=== PATIENT | female | born 1935 | race Caucasian/White ===

== ENCOUNTER 2020-01-03 07:49 | Outpatient (CLI) | payer MEDICARE, BC, OTHER ==
[2020-01-03 11:35] LABS: Hemoglobin 11.9 g/dL (12.0-16.0); Mean Corpuscular HGB CONC 32.8 g/dL (32.0-36.0); Mean Corpuscular Hemoglobin 32.4 pg (27.0-31.0); Mean Corpuscular Volume 98.7 fL (78.0-98.0); Platelet Count 141 thou/uL (130-400); RBC Distribution Width 11.8 % (11.5-14.5); Red Blood Cell (RBC) Count 3.67 mill/uL (4.20-5.40); White Blood Cell (WBC) Count 7.3 thou/uL (4.8-10.8)
[2020-01-03 12:26] LABS: ALT (SGPT) 26 U/L (8-55); AST (SGOT) 29 U/L (5-34); Albumin 4.6 g/dL (3.4-4.8); Alkaline Phosphatase 87 U/L (40-110); Anion Gap 14 mmol/L (10-20); BUN (Urea Nitrogen) 18 mg/dL (9.8-20.1); Bilirubin, Total 0.7 mg/dL (0.2-1.2); Calc. Creatinine Clearance 0 mL/min (70-130); Calcium 10.6 mg/dL (7.8-10.44); Carbon Dioxide 27 mmol/L (23-31); Cardiac Risk 2.6 (Less than 4.5); Chloride 105 mmol/L (98-107); Cholesterol 107 mg/dl (< 200 Desired); Estimated GFR-MDRD 39; Globulin 2.5 g/dL (2.4-3.5); Glucose 93 mg/dL (83-110); HDL Cholesterol 41 mg/dL (>60 Neg Risk); LDL Cholesterol, Calculated 44 mg/dL; Potassium 4.8 mmol/L (3.5-5.1); Protein, Total 7.1 g/dL (6.0-8.3); Sodium 141 mmol/L (136-145); Triglycerides 108 mg/dL (Less than 150)
--- NOTE | 2020-01-03 16:47 | EKG ---
Test Reason : PREOP Blood Pressure : / mmHG Vent. Rate : 067 BPM Atrial Rate : 067 BPM P-R Int : 162 ms QRS Dur : 096 ms QT Int : 418 ms P-R-T Axes : 079 054 070 degrees QTc Int : 441 ms Normal sinus rhythm Nonspecific ST abnormality Abnormal ECG No previous ECGs available Confirmed by DR. Mara SANTA ([id number]) on 01/03/2020 4:46:41 PM Referred By: Kunal CHAKRABORTY Confirmed By:DR. Mara ASNTA
[2020-01-03 17:06] LABS: SARS-CoV-2 MS2 Positive; SARS-CoV-2 N Gene Negative; SARS-CoV-2 S Gene Negative; SARS-CoV-2 by NAA Not Detected (NotDetected); SARS-CoV-2 orf1ab Negative
== END 2020-01-03 07:50 | disposition home or self-care (01) ==
LOC: LABBT 07:49
PROVIDERS: ATTEND Internal Medicine Cardiovascular Disease
DX: Z01.818 Encounter for other preprocedural examination (principal); Z20.828 Contact with and (suspected) exposure to other viral communicable diseases; R94.39 Abnormal result of other cardiovascular function study
CPT/HCPCS: 80053; 80061; 85027; 93005; U0003; 87635; 93010

== ENCOUNTER 2020-01-08 05:56 | Day surgery (SDC) | payer MEDICARE, BC ==
[2020-01-03 11:35] VITALS: BMI 27.1
[2020-01-08] MEDS ORDERED: Heparin 10,000 UNITS/ 10 ML VIAL ONE (06:30)
[2020-01-08] MEDS ORDERED: Midazolam HCl 2 mg/2 ml Vial ONE (07:03)
[2020-01-08] MEDS ORDERED: Bivalirudin 250 MG VIAL ONE (07:41)
[2020-01-08] MEDS ORDERED: Clopidogrel Bisulfate 300 MG TAB ONE (07:54)
[2020-01-08] MEDS ORDERED: hydrALAZINE 20 MG/ML VIAL ONE (08:47)
[2020-01-08] MEDS ORDERED: Nitroglycerin 0.4 MG TAB (25 Tab Bottle) SL PRN (09:04)
[2020-01-08] MEDS ORDERED: Iopamidol 370 76% 100 ML VIAL ONE (09:05)
[2020-01-08] MEDS ORDERED: Iopamidol 370 76% 50 ML VIAL FS ONE (09:05)
[2020-01-08] MEDS ORDERED: Morphine 2 MG/ML VIAL SLOW IVP PRN (09:07)
[2020-01-08] MEDS ORDERED: Morphine 4 MG/ML VIAL SLOW IVP PRN (09:08)
[2020-01-08] MEDS ORDERED: hydrALAZINE 20 MG/ML VIAL SLOW IVP PRN (09:10)
[2020-01-08] MEDS ORDERED: Sodium Chloride 0.9% 1,000 ML IV SCH (09:15)
[2020-01-08] MEDS ORDERED: Clopidogrel Bisulfate 75 MG TAB ONE (17:03)
[2020-01-08] MEDS ORDERED: Acetaminophen 500 MG TAB ONE (18:23)
[2020-01-09] MEDS ORDERED: Clopidogrel Bisulfate 75 MG TAB PO SCH (09:00)
[2020-01-09] MEDS ORDERED: Aspirin Chewable 81 MG TAB PO SCH (09:00)
== END 2020-01-08 19:55 | disposition home or self-care (01) ==
LOC: SDC 05:56
PROVIDERS: ATTEND Internal Medicine Cardiovascular Disease
PROC: 02703DZ Dilation of Coronary Artery, One Artery with Intraluminal Device, Percutaneous Approach (ICD-10-PCS; principal; 2020-01-08)
PROC: 4A023N7 Measurement of Cardiac Sampling and Pressure, Left Heart, Percutaneous Approach (ICD-10-PCS; 2020-01-08)
PROC: B2111ZZ Fluoroscopy of Multiple Coronary Arteries using Low Osmolar Contrast (ICD-10-PCS; 2020-01-08)
PROC: B2181ZZ Fluoroscopy of Left Internal Mammary Bypass Graft using Low Osmolar Contrast (ICD-10-PCS; 2020-01-08)
DX: I25.10 Atherosclerotic heart disease of native coronary artery without angina pectoris (principal); I25.810 Atherosclerosis of coronary artery bypass graft(s) without angina pectoris; I25.82 Chronic total occlusion of coronary artery; E78.5 Hyperlipidemia, unspecified; E78.00 Pure hypercholesterolemia, unspecified; I10 Essential (primary) hypertension; I65.21 Occlusion and stenosis of right carotid artery; Z79.2 Long term (current) use of antibiotics; Z79.82 Long term (current) use of aspirin; Z79.899 Other long term (current) drug therapy; Z88.7 Allergy status to serum and vaccine; Z88.8 Allergy status to other drugs, medicaments and biological substances; Z91.012 Allergy to eggs; Z95.1 Presence of aortocoronary bypass graft; Z95.5 Presence of coronary angioplasty implant and graft
CPT/HCPCS: 85347 ×2; 92928; 93455; C1876; 99152; 99153; J0360; J0583; J1644; J2250; Q9967

== ENCOUNTER 2020-02-19 14:12 | Outpatient (CLI) | payer MEDICARE, BC ==
[~2020-02-19 14:12] MED LIST: Iopamidol 370 76% 100 ML VIAL ONE
--- NOTE | 2020-02-19 16:56 | CT ---
CTA ABDOMEN AND PELVIS FOLLOWING AORTOGRAM PROTOCOL: 02/19/20 Multiplanar reconstruction and 3D postprocessing. INDICATION: Abdominal pain. Assess for mesenteric ischemia. FINDINGS: Abdominal aorta shows atherosclerotic changes. No evidence of dissection. No evidence of aneurysm. Di stal abdominal aorta diameter measured at 1.9 cm. Atherosclerotic calcification at the origin of the celiac artery with mild stenosis at the origin of this artery. The stenosis does not appear to be hemodynamically significant. There is soft plaque with focal stenosis at the origin of the superior mesenteric artery. The degree of stenosis is approaching 50% diameter by NASCET criteria which would indicate hemodynamically signi ficance. The superior mesenteric artery trunk is patent with no other evidence of stenosis or occlusi on. Atherosclerotic plaque at the origin of the right renal artery results in significant renal artery st enosis greater than 50%. Plaque at the origin of the left renal artery also results in hemodynamically significant stenosis. Aortic bifurcation is patent. The common iliac arteries show no significant stenosis. The internal an d external iliac arteries show no significant stenosis as visualized. The visualized lung bases are clear. Liver, spleen and pancreas unremarkable. Adrenal glands and kidn eys unremarkable. There is a left renal cyst measuring approximately 1.4 cm. The visualized bowel loo ps unremarkable. Osseous structures unremarkable. Degenerative spine changes. IMPRESSION: 1. 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 2. There is evidence of hemodynamically significant stenosis at the origin of both renal arterie s. Recommend cardiovascular consultation to consider catheter angiogram and treatment with stent placeme nt as indicated. POS: MATHEW
== END 2020-02-19 14:13 | disposition home or self-care (01) ==
LOC: BICCT 14:12
PROVIDERS: ATTEND Internal Medicine
DX: K59.00 Constipation, unspecified (principal); R10.32 Left lower quadrant pain; I77.1 Stricture of artery
CPT/HCPCS: 74175; Q9967

== ENCOUNTER 2020-02-21 13:00 | Outpatient (CLI) | payer MEDICARE, BC ==
--- NOTE | 2020-02-21 14:18 | CT ---
CT abdomen and pelvis with IV and oral contrast HISTORY: Lower abdomen pain. Vascular disease. COMPARISON: 02/19/2020. FINDINGS: Very mild proximal scarring at the lung bases. Prominent calcification is again demonstrate d throughout the arterial structures. Small cortical cysts and dystrophic cortical calcifications associated with each kidney are stable. Liver, spleen, adrenal glands, and pancreas have a normal appearance. There are prominent degenerativ e changes throughout the lumbar spine. Diverticula arise from the colon. There are primarily 2 areas of circumferential colon wall thickenin g and subtle stranding in the adjacent fat. On the right, it extends from the level of the lower right colon to the proximal transverse colon. On the left, it involves the lower left colon and the e ntirety of the sigmoid colon, into the upper rectum. No evidence of bowel obstruction. No free air or free fluid. IMPRESSION : Noncontiguous long segment mild inflammatory changes of the colon, involving the right colon and sigm oid colon primarily. Appearance is not typical for diverticulitis (although there is diverticulosis) or a good distribution for ischemia. Inflammatory bowel disease may be unlikely given the rapid appearance. Consider infectious etiology. Atherosclerosis.
== END 2020-02-21 13:01 | disposition home or self-care (01) ==
LOC: BICCT 13:00
PROVIDERS: ATTEND Internal Medicine
DX: K59.00 Constipation, unspecified (principal); R10.32 Left lower quadrant pain; I70.90 Unspecified atherosclerosis
CPT/HCPCS: 74177

== ENCOUNTER 2020-08-05 13:51 | Outpatient (CLI) | payer MEDICARE, BC | END 2020-08-05 13:52 | disposition home or self-care (01) | LOC: BICULT 13:51 | PROVIDERS: ATTEND Family Medicine | DX: N39.0 Urinary tract infection, site not specified (principal) | CPT/HCPCS: 76770 ==

== ENCOUNTER 2020-10-11 13:53 | Inpatient (IN) | payer MEDICARE, BC ==
[2020-10-11] MEDS ORDERED: Acetaminophen 325 MG TAB PO PRN (14:44)
[2020-10-11] MEDS ORDERED: Ondansetron PF 4 MG/2 ML Vial IVP PRN (14:44)
[2020-10-11] MEDS ORDERED: Morphine 2 MG/ML VIAL SLOW IVP PRN (14:44)
[2020-10-11] MEDS ORDERED: Guaifenesin DM 100-10/5 ML UDCUP PO PRN (14:44)
[2020-10-11] MEDS ORDERED: Senokot S 8.6-50 MG TAB PO PRN (14:44)
[2020-10-11] MEDS ORDERED: Nitroglycerin 2% Ointment 1 INCH/1 GM Packet ONE (16:12)
[2020-10-11 16:24] LABS: Troponin I 7.245 ng/mL (< 0.028)
[2020-10-11 16:25] LABS: #Basophils 0.1 thou/uL (0.0-0.2); #Lymphocytes 1.6 thou/uL (1.20-3.40); #Monocytes 0.8 thou/uL (0.11-0.59); #Neutrophils 9.3 thou/uL (1.40-6.50); %Basophils 0.5 % (0.0-1.0); %Eosinophils 0.1 % (0.0-10.0); %Lymphocytes 13.9 % (21.0-51.0); %Monocytes 6.6 % (0.0-10.0); Hemoglobin 12.8 g/dL (12.0-16.0); Mean Corpuscular HGB CONC 33.3 g/dL (32.0-36.0); Mean Corpuscular Hemoglobin 32.3 pg (27.0-31.0); Mean Corpuscular Volume 97.1 fL (78.0-98.0); Mean Platelet Volume 9.2 fL (7.4-10.4); Platelet Count 157 thou/uL (130-400); RBC Distribution Width 11.5 % (11.5-14.5); Red Blood Cell (RBC) Count 3.95 mill/uL (4.20-5.40); White Blood Cell (WBC) Count 11.8 thou/uL (4.8-10.8)
[2020-10-11 16:36] LABS: INR-International Normal Ratio 1.1
[2020-10-11 16:37] LABS: PTT 42.4 sec (22.9-36.1)
[2020-10-11 16:53] LABS: Anion Gap 20 mmol/L (10-20); BUN (Urea Nitrogen) 33 mg/dL (9.8-20.1); CK (CPK) 389 U/L (29-168); Calc. Creatinine Clearance 33 mL/min (70-130); Calcium 9.6 mg/dL (7.8-10.44); Carbon Dioxide 18 mmol/L (23-31); Chloride 106 mmol/L (98-107); Glucose 101 mg/dL (83-110); Potassium 4.5 mmol/L (3.5-5.1); Sodium 139 mmol/L (136-145)
[2020-10-11] MEDS: Cefepime 1 GM in Sodium Chloride 0.9% 100 ML IVPB SCH (16:59)
[2020-10-11 17:16] LABS: Troponin I 7.404 ng/mL (< 0.028)
[2020-10-11] MEDS: Carvedilol 6.25 MG TAB PO SCH (20:56)
[2020-10-11] MEDS: Enoxaparin Sodium 60 MG/0.6 ML SYRINGE SC SCH (20:56)
[2020-10-11] MEDS ORDERED: Nitroglycerin 2% Ointment 1 INCH/1 GM Packet TOP SCH (22:00)
[2020-10-12 01:44] LABS: SARS-CoV-2 PCR by NAA Not Detected (NotDetected)
[2020-10-12 04:28] LABS: #Monocytes 0.8 thou/uL (0.11-0.59); #Neutrophils 11.2 thou/uL (1.40-6.50); %Lymphocytes 7.9 % (21.0-51.0); %Monocytes 6.4 % (0.0-10.0); %Neutrophils 85.7 % (42.0-75.0); Hemoglobin 12.4 g/dL (12.0-16.0); Mean Corpuscular HGB CONC 33.7 g/dL (32.0-36.0); Mean Corpuscular Hemoglobin 32.4 pg (27.0-31.0); Mean Corpuscular Volume 96.2 fL (78.0-98.0); Mean Platelet Volume 10.3 fL (7.4-10.4); Platelet Count 136 thou/uL (130-400); RBC Distribution Width 11.4 % (11.5-14.5); Red Blood Cell (RBC) Count 3.82 mill/uL (4.20-5.40); White Blood Cell (WBC) Count 13.1 thou/uL (4.8-10.8)
[2020-10-12] MEDS: Cefepime 1 GM in Sodium Chloride 0.9% 100 ML IVPB SCH ×2 (04:34→17:03)
[2020-10-12 04:36] LABS: Hemoglobin A1c 4.7 % (4.0-6.0)
[2020-10-12 04:54] LABS: ALT (SGPT) 20 U/L (8-55); AST (SGOT) 87 U/L (5-34); Albumin 4.1 g/dL (3.4-4.8); Alkaline Phosphatase 77 U/L (40-110); Anion Gap 18 mmol/L (10-20); BUN (Urea Nitrogen) 31 mg/dL (9.8-20.1); Bilirubin, Total 0.8 mg/dL (0.2-1.2); Calc. Creatinine Clearance 31 mL/min (70-130); Calcium 9.8 mg/dL (7.8-10.44); Carbon Dioxide 20 mmol/L (23-31); Cardiac Risk 2.3 (Less than 4.5); Chloride 105 mmol/L (98-107); Cholesterol 93 mg/dl (< 200 Desired); Globulin 2.9 g/dL (2.4-3.5); Glucose 135 mg/dL (83-110); HDL Cholesterol 40 mg/dL (>60 Neg Risk); LDL Cholesterol, Calculated 38 mg/dL; Potassium 4.4 mmol/L (3.5-5.1); Sodium 139 mmol/L (136-145); Triglycerides 74 mg/dL (Less than 150)
[2020-10-12 08:20] LABS: Troponin I 15.826 ng/mL (< 0.028)
[2020-10-12] MEDS ORDERED: Clopidogrel Bisulfate 75 MG TAB PO SCH (09:00)
[2020-10-12] MEDS: Aspirin Chewable 81 MG TAB PO SCH (09:01)
[2020-10-12] MEDS: Nortriptyline HCl 25 MG CAP PO SCH (09:01)
[2020-10-12] MEDS: Clopidogrel Bisulfate 75 MG TAB PO SCH (09:01)
[2020-10-12] MEDS: Rosuvastatin 10 MG TAB PO SCH (09:01)
[2020-10-12] MEDS: Carvedilol 6.25 MG TAB PO SCH ×2 (09:03→20:45)
[2020-10-12] MEDS: Enoxaparin Sodium 60 MG/0.6 ML SYRINGE SC SCH ×2 (11:27→20:46)
[2020-10-12] MEDS ORDERED: Evolocumab [Repatha Sureclick] 140 MG/ML Pen.Injctr SC SCH (13:30)
[2020-10-12] MEDS ORDERED: Furosemide 20 MG/2 ML VIAL SLOW IVP SCH (14:00)
[2020-10-12 14:56] LABS: Critical Call Chem Troponin I RESULT DECREASING
[2020-10-12 15:32] LABS: CKMB 39.4 ng/mL (0-6.6); Critical Call CKMB RESULT DECREASING
[2020-10-12] MEDS ORDERED: Furosemide 40 MG/4 ML VIAL SLOW IVP SCH (16:30)
[2020-10-13] MEDS: Cefepime 1 GM in Sodium Chloride 0.9% 100 ML IVPB SCH ×2 (03:29→15:16)
[2020-10-13 05:04] LABS: #Lymphocytes 1.4 thou/uL (1.20-3.40); #Monocytes 1.4 thou/uL (0.11-0.59); #Neutrophils 9.8 thou/uL (1.40-6.50); %Eosinophils 0.3 % (0.0-10.0); %Lymphocytes 10.9 % (21.0-51.0); %Monocytes 11.3 % (0.0-10.0); %Neutrophils 77.5 % (42.0-75.0); Hemoglobin 10.8 g/dL (12.0-16.0); Mean Corpuscular HGB CONC 33.4 g/dL (32.0-36.0); Mean Corpuscular Hemoglobin 32.5 pg (27.0-31.0); Mean Corpuscular Volume 97.5 fL (78.0-98.0); Platelet Count 95 thou/uL (130-400); RBC Distribution Width 11.6 % (11.5-14.5); Red Blood Cell (RBC) Count 3.32 mill/uL (4.20-5.40); White Blood Cell (WBC) Count 12.7 thou/uL (4.8-10.8)
[2020-10-13 05:16] LABS: Anion Gap 15 mmol/L (10-20); BUN (Urea Nitrogen) 33 mg/dL (9.8-20.1); Calc. Creatinine Clearance 30 mL/min (70-130); Calcium 9.4 mg/dL (7.8-10.44); Carbon Dioxide 22 mmol/L (23-31); Chloride 104 mmol/L (98-107); Glucose 123 mg/dL (83-110); Potassium 4.3 mmol/L (3.5-5.1); Sodium 137 mmol/L (136-145)
[2020-10-13 05:28] LABS: Troponin I 16.187 ng/mL (< 0.028)
[2020-10-13] MEDS: Furosemide 40 MG/4 ML VIAL SLOW IVP SCH ×2 (05:29→15:17)
[2020-10-13] MEDS: Carvedilol 6.25 MG TAB PO SCH ×2 (08:18→21:14)
[2020-10-13] MEDS: Rosuvastatin 10 MG TAB PO SCH (08:18)
[2020-10-13] MEDS: Aspirin Chewable 81 MG TAB PO SCH (08:18)
[2020-10-13] MEDS: Nortriptyline HCl 25 MG CAP PO SCH (08:19)
[2020-10-13] MEDS: Enoxaparin Sodium 60 MG/0.6 ML SYRINGE SC SCH (08:19)
[2020-10-13] MEDS: Clopidogrel Bisulfate 75 MG TAB PO SCH (12:10)
[2020-10-13] MEDS ORDERED: Sodium Chloride 0.9% 250 ML IV SCH (16:15)
[2020-10-14] MEDS: Cefepime 1 GM in Sodium Chloride 0.9% 100 ML IVPB SCH ×2 (03:21→16:22)
[2020-10-14 04:21] LABS: Anion Gap 14 mmol/L (10-20); BUN (Urea Nitrogen) 43 mg/dL (9.8-20.1); Calc. Creatinine Clearance 24 mL/min (70-130); Calcium 9.3 mg/dL (7.8-10.44); Carbon Dioxide 25 mmol/L (23-31); Chloride 103 mmol/L (98-107); Glucose 95 mg/dL (83-110); Potassium 3.8 mmol/L (3.5-5.1); Sodium 138 mmol/L (136-145)
[2020-10-14] MEDS: Furosemide 40 MG/4 ML VIAL SLOW IVP SCH (05:53)
[2020-10-14] MEDS ORDERED: Sodium Chloride 0.9% 1,000 ML IV SCH ×2 (07:00→10:31)
[2020-10-14] MEDS ORDERED: Communication Order-Pharmacy FS SCH (07:00)
[2020-10-14] MEDS ORDERED: Heparin 10,000 UNITS/ 10 ML VIAL ONE (08:30)
[2020-10-14] MEDS ORDERED: Lidocaine 1% (PF) 30 ML VIAL ONE (08:30)
[2020-10-14] MEDS ORDERED: Iopamidol 370 76% 100 ML VIAL ONE (09:01)
[2020-10-14] MEDS ORDERED: Midazolam HCl 2 mg/2 ml Vial ONE (09:23)
[2020-10-14] MEDS ORDERED: Fentanyl 100 MCG/2 ML VIAL ONE (09:23)
[2020-10-14] MEDS ORDERED: Protamine Sulfate 50 MG/5 ML VIAL ONE (10:00)
[2020-10-14] MEDS ORDERED: Acetaminophen/Codeine 30-300mg Tablet PO PRN ×2 (10:30)
[2020-10-14] MEDS ORDERED: Nitroglycerin 0.4 MG TAB (25 Tab Bottle) SL PRN (10:30)
[2020-10-14] MEDS ORDERED: Sodium Chloride 0.9% 200 ML IV PRN (10:30)
[2020-10-14] MEDS: Nortriptyline HCl 25 MG CAP PO SCH (11:34)
[2020-10-14] MEDS: Clopidogrel Bisulfate 75 MG TAB PO SCH (11:35)
[2020-10-14] MEDS: Rosuvastatin 10 MG TAB PO SCH (11:35)
[2020-10-14] MEDS: Carvedilol 6.25 MG TAB PO SCH ×2 (11:35→21:06)
[2020-10-14] MEDS: Aspirin Chewable 81 MG TAB PO SCH (11:36)
[2020-10-14] MEDS ORDERED: Enoxaparin Sodium 60 MG/0.6 ML SYRINGE SC SCH (21:00)
[2020-10-15 04:31] LABS: #Eosinphils 0.1 thou/uL (0.0-0.7); #Lymphocytes 1.1 thou/uL (1.20-3.40); #Monocytes 0.7 thou/uL (0.11-0.59); %Basophils 0.2 % (0.0-1.0); %Eosinophils 0.8 % (0.0-10.0); %Lymphocytes 15.6 % (21.0-51.0); %Monocytes 10.4 % (0.0-10.0); Hemoglobin 10.3 g/dL (12.0-16.0); Mean Corpuscular HGB CONC 32.8 g/dL (32.0-36.0); Mean Corpuscular Hemoglobin 31.8 pg (27.0-31.0); Mean Corpuscular Volume 96.9 fL (78.0-98.0); Mean Platelet Volume 10.3 fL (7.4-10.4); Platelet Count 104 thou/uL (130-400); RBC Distribution Width 11.6 % (11.5-14.5); Red Blood Cell (RBC) Count 3.23 mill/uL (4.20-5.40); White Blood Cell (WBC) Count 6.8 thou/uL (4.8-10.8)
[2020-10-15 04:50] LABS: Anion Gap 10 mmol/L (10-20); BUN (Urea Nitrogen) 38 mg/dL (9.8-20.1); Calc. Creatinine Clearance 31 mL/min (70-130); Calcium 9.4 mg/dL (7.8-10.44); Carbon Dioxide 26 mmol/L (23-31); Chloride 105 mmol/L (98-107); Glucose 99 mg/dL (83-110); Magnesium 2.2 mg/dL (1.6-2.6); Potassium 4.1 mmol/L (3.5-5.1); Sodium 137 mmol/L (136-145)
[2020-10-15] MEDS: Cefepime 1 GM in Sodium Chloride 0.9% 100 ML IVPB SCH (05:18)
[2020-10-15] MEDS: Aspirin Chewable 81 MG TAB PO SCH (08:28)
[2020-10-15] MEDS: Clopidogrel Bisulfate 75 MG TAB PO SCH (08:28)
[2020-10-15] MEDS: Furosemide 40 MG TAB PO SCH ×2 (08:28→09:44)
[2020-10-15] MEDS: Carvedilol 6.25 MG TAB PO SCH (08:28)
[2020-10-15] MEDS: Rosuvastatin 10 MG TAB PO SCH (08:29)
[2020-10-15] MEDS: Nortriptyline HCl 25 MG CAP PO SCH (08:29)
[2020-10-15] MEDS ORDERED: Carvedilol 3.125 MG TAB PO SCH (09:45)
[2020-10-15] MEDS: Carvedilol 3.125 MG TAB PO SCH (16:56)
[2020-10-15] MEDS: Sulfameth/Trimethoprim DS 800-160mg TAB PO SCH (20:29)
[2020-10-16 04:56] LABS: #Eosinphils 0.2 thou/uL (0.0-0.7); #Lymphocytes 1.2 thou/uL (1.20-3.40); #Monocytes 0.8 thou/uL (0.11-0.59); #Neutrophils 4.3 thou/uL (1.40-6.50); %Eosinophils 2.8 % (0.0-10.0); %Lymphocytes 18.2 % (21.0-51.0); Hemoglobin 10.8 g/dL (12.0-16.0); Mean Corpuscular HGB CONC 34.9 g/dL (32.0-36.0); Mean Corpuscular Hemoglobin 34.1 pg (27.0-31.0); Mean Corpuscular Volume 97.7 fL (78.0-98.0); Mean Platelet Volume 10.1 fL (7.4-10.4); Platelet Count 108 thou/uL (130-400); RBC Distribution Width 11.4 % (11.5-14.5); Red Blood Cell (RBC) Count 3.18 mill/uL (4.20-5.40); White Blood Cell (WBC) Count 6.4 thou/uL (4.8-10.8)
[2020-10-16 05:04] LABS: Anion Gap 12 mmol/L (10-20); BUN (Urea Nitrogen) 31 mg/dL (9.8-20.1); Calc. Creatinine Clearance 39 mL/min (70-130); Calcium 9.5 mg/dL (7.8-10.44); Carbon Dioxide 28 mmol/L (23-31); Chloride 102 mmol/L (98-107); Glucose 85 mg/dL (83-110); Potassium 3.7 mmol/L (3.5-5.1); Sodium 138 mmol/L (136-145)
[2020-10-16 07:17] VITALS: BMI 23.6
[2020-10-16] MEDS: Clopidogrel Bisulfate 75 MG TAB PO SCH (09:42)
[2020-10-16] MEDS: Rosuvastatin 10 MG TAB PO SCH (09:42)
[2020-10-16] MEDS: Furosemide 40 MG TAB PO SCH (09:42)
[2020-10-16] MEDS: Aspirin Chewable 81 MG TAB PO SCH (09:42)
[2020-10-16] MEDS: Carvedilol 3.125 MG TAB PO SCH (09:42)
[2020-10-16] MEDS: Sulfameth/Trimethoprim DS 800-160mg TAB PO SCH ×2 (09:42→21:04)
[2020-10-16] MEDS: Carvedilol 6.25 MG TAB PO SCH (18:43)
[2020-10-16] MEDS: Enoxaparin Sodium 60 MG/0.6 ML SYRINGE SC SCH (21:04)
[2020-10-17 04:46] LABS: #Eosinphils 0.2 thou/uL (0.0-0.7); #Lymphocytes 1.1 thou/uL (1.20-3.40); #Monocytes 0.6 thou/uL (0.11-0.59); #Neutrophils 3.4 thou/uL (1.40-6.50); %Basophils 0.6 % (0.0-1.0); %Lymphocytes 20.9 % (21.0-51.0); %Monocytes 11.8 % (0.0-10.0); %Neutrophils 62.6 % (42.0-75.0); Hemoglobin 10.9 g/dL (12.0-16.0); Mean Corpuscular HGB CONC 33.6 g/dL (32.0-36.0); Mean Corpuscular Hemoglobin 32.3 pg (27.0-31.0); Mean Corpuscular Volume 96.1 fL (78.0-98.0); Mean Platelet Volume 10.3 fL (7.4-10.4); Platelet Count 118 thou/uL (130-400); RBC Distribution Width 11.4 % (11.5-14.5); Red Blood Cell (RBC) Count 3.38 mill/uL (4.20-5.40); White Blood Cell (WBC) Count 5.4 thou/uL (4.8-10.8)
[2020-10-17 05:02] LABS: Anion Gap 16 mmol/L (10-20); BUN (Urea Nitrogen) 27 mg/dL (9.8-20.1); Calc. Creatinine Clearance 35 mL/min (70-130); Calcium 9.6 mg/dL (7.8-10.44); Carbon Dioxide 24 mmol/L (23-31); Chloride 98 mmol/L (98-107); Glucose 79 mg/dL (83-110); Magnesium 1.8 mg/dL (1.6-2.6); Potassium 3.5 mmol/L (3.5-5.1); Sodium 134 mmol/L (136-145)
[2020-10-17] MEDS: Clopidogrel Bisulfate 75 MG TAB PO SCH (08:15)
[2020-10-17] MEDS: Rosuvastatin 10 MG TAB PO SCH (08:15)
[2020-10-17] MEDS: Aspirin Chewable 81 MG TAB PO SCH (08:15)
[2020-10-17] MEDS: Enoxaparin Sodium 60 MG/0.6 ML SYRINGE SC SCH ×2 (08:15→20:19)
[2020-10-17] MEDS: Furosemide 40 MG TAB PO SCH (08:15)
[2020-10-17] MEDS: Sulfameth/Trimethoprim DS 800-160mg TAB PO SCH ×2 (08:15→20:19)
[2020-10-17] MEDS: Carvedilol 6.25 MG TAB PO SCH ×2 (08:16→16:16)
[2020-10-17] MEDS ORDERED: Polyethylene Glycol 3350 17 GM Packet PO PRN (12:35)
[2020-10-18 05:04] LABS: #Eosinphils 0.3 thou/uL (0.0-0.7); #Lymphocytes 1.5 thou/uL (1.20-3.40); #Monocytes 0.7 thou/uL (0.11-0.59); #Neutrophils 2.6 thou/uL (1.40-6.50); %Basophils 0.8 % (0.0-1.0); %Eosinophils 5.8 % (0.0-10.0); %Lymphocytes 29.2 % (21.0-51.0); %Monocytes 14.3 % (0.0-10.0); Hemoglobin 10.6 g/dL (12.0-16.0); Mean Corpuscular HGB CONC 33.4 g/dL (32.0-36.0); Mean Corpuscular Hemoglobin 32.2 pg (27.0-31.0); Mean Corpuscular Volume 96.3 fL (78.0-98.0); Mean Platelet Volume 9.7 fL (7.4-10.4); Platelet Count 131 thou/uL (130-400); RBC Distribution Width 11.3 % (11.5-14.5); Red Blood Cell (RBC) Count 3.29 mill/uL (4.20-5.40); White Blood Cell (WBC) Count 5.1 thou/uL (4.8-10.8)
[2020-10-18 05:39] LABS: Anion Gap 13 mmol/L (10-20); BUN (Urea Nitrogen) 29 mg/dL (9.8-20.1); Calc. Creatinine Clearance 29 mL/min (70-130); Calcium 9.8 mg/dL (7.8-10.44); Carbon Dioxide 28 mmol/L (23-31); Chloride 98 mmol/L (98-107); Glucose 80 mg/dL (83-110); Potassium 3.4 mmol/L (3.5-5.1); Sodium 136 mmol/L (136-145)
[2020-10-18 06:27] LABS: Bilirubin Small (Negative); Blood, Urine Trace (Negative); Glucose, Urine (Dipstick) Negative (Negative); Ketone, Urine Negative (Negative); Leukocyte Moderate (Negative); Nitrite Negative (Negative); Protein, Urine (Dipstick) Trace mg/dL (Neg-Trace); Specific Gravity, Urine 1.015 (1.005-1.030); Urobilinogen 0.2 mg/dL (Less than 2); pH, Urine 5.5 (5.0-9.0)
[2020-10-18 06:31] LABS: Clarity Clear (Clear)
[2020-10-18 06:32] LABS: Urine Culture Reflex No No
[2020-10-18 06:39] LABS: Bacteria/HPF None Seen HPF (None Seen); Squamous Epithelial 0-3 HPF (0-3); WBC/HPF 21-50 HPF (0-3)
[2020-10-18] MEDS ORDERED: Potassium Chloride 20 MEQ TAB PO SCH (08:15)
[2020-10-18] MEDS: Enoxaparin Sodium 60 MG/0.6 ML SYRINGE SC SCH (08:47)
[2020-10-18] MEDS: Clopidogrel Bisulfate 75 MG TAB PO SCH (08:47)
[2020-10-18] MEDS: Sulfameth/Trimethoprim DS 800-160mg TAB PO SCH (08:47)
[2020-10-18] MEDS: Carvedilol 6.25 MG TAB PO SCH ×2 (08:47→17:24)
[2020-10-18] MEDS: Rosuvastatin 10 MG TAB PO SCH (08:47)
[2020-10-18] MEDS: Furosemide 40 MG TAB PO SCH (08:47)
[2020-10-18] MEDS: Aspirin Chewable 81 MG TAB PO SCH (08:47)
[2020-10-18 15:30] VITALS: BP 108/71; TEMP 98.3
== END 2020-10-18 20:00 | DRG 280 ==
LOC: 2NO 13:53
PROVIDERS: ADMIT Internal Medicine; ATTEND Family Medicine
PROC: 4A023N7 Measurement of Cardiac Sampling and Pressure, Left Heart, Percutaneous Approach (ICD-10-PCS; principal; 2020-10-14)
PROC: B2111ZZ Fluoroscopy of Multiple Coronary Arteries using Low Osmolar Contrast (ICD-10-PCS; 2020-10-14)
DX: I21.4 Non-ST elevation (NSTEMI) myocardial infarction (principal); I50.23 Acute on chronic systolic (congestive) heart failure; J18.9 Pneumonia, unspecified organism; I26.99 Other pulmonary embolism without acute cor pulmonale; N17.9 Acute kidney failure, unspecified; I13.0 Hypertensive heart and chronic kidney disease with heart failure and stage 1 through stage 4 chronic kidney disease, or unspecified chronic kidney disease; N39.0 Urinary tract infection, site not specified; R47.01 Aphasia; R53.81 Other malaise; E78.5 Hyperlipidemia, unspecified; I25.10 Atherosclerotic heart disease of native coronary artery without angina pectoris; R79.1 Abnormal coagulation profile; N18.9 Chronic kidney disease, unspecified; Z20.822 Contact with and (suspected) exposure to COVID-19; R91.8 Other nonspecific abnormal finding of lung field; I77.9 Disorder of arteries and arterioles, unspecified; I25.5 Ischemic cardiomyopathy; Z88.7 Allergy status to serum and vaccine; Z95.1 Presence of aortocoronary bypass graft; Z95.5 Presence of coronary angioplasty implant and graft; Z91.012 Allergy to eggs; Z79.82 Long term (current) use of aspirin; Z79.899 Other long term (current) drug therapy
CPT/HCPCS: 36415; 36416; 70450; 71045; 78451; 80048; 80053; 80061; 81001; 82553; 83036; 83735; 83880; 84484; 85025; 85347; 85379; 85610; 85730; 87040; 87086; 93005; 93010; 93306; 93455; 93798; 93880; 93970; 99152; A9540; J0692; J1644; J1650; J1940; J2001; J2250; J2270; J2405; J2720; J3010; J3490; Q9967; U0003; U0005

== ENCOUNTER 2021-07-19 15:11 | Outpatient (CLI) | payer MEDICARE, BC ==
[2021-07-19 16:57] LABS: Bilirubin 1+ (Negative); Blood, Urine 150 (Negative); Clarity Slightly Cloudy (Clear); Glucose, Urine (Dipstick) Normal (Negative); Ketone, Urine Negative (Negative); Leukocyte 500 (Negative); Nitrite Positive (Negative); Protein, Urine (Dipstick) 30 mg/dl (Neg-Trace); Specific Gravity, Urine 1.025 (1.002-1.036)
[2021-07-19 16:59] LABS: Hemoglobin 11.2 g/dL (12.0-15.5); Mean Corpuscular HGB CONC 31.6 g/dL (32.0-36.0); Mean Corpuscular Hemoglobin 30.4 pg (27.0-33.0); Mean Corpuscular Volume 95.9 fl (81.6-98.3); Mean Platelet Volume 11.9 fl (7.4-10.4); Platelet Count 159 10x3/uL (150-450); RBC Distribution Width 12.8 % (11.5-14.5); Red Blood Cell (RBC) Count 3.69 10x6/uL (3.90-5.03); White Blood Cell (WBC) Count 4.3 10x3/uL (3.5-10.5)
[2021-07-19 17:10] LABS: Bacteria/HPF 3+ HPF (None Seen); Squamous Epithelial 0-3 HPF (0-3); WBC/HPF 21-50 HPF (0-3)
[2021-07-19 17:29] LABS: Anion Gap 14 mmol/L (10-20); BUN (Urea Nitrogen) 23 mg/dL (9.8-20.1); Calc. Creatinine Clearance 0 mL/min (70-130); Calcium 10.4 mg/dL (7.8-10.44); Carbon Dioxide 28 mmol/L (23-31); Chloride 106 mmol/L (98-107); Glucose 85 mg/dL (83-110); Potassium 4.3 mmol/L (3.5-5.1); Sodium 144 mmol/L (136-145)
[2021-07-19 17:36] LABS: Prothrombin Time 10.9 sec (9.5-12.1)
[2021-07-20 03:28] LABS: SARS-CoV-2 PCR by NAA Not Detected (NotDetected)
== END 2021-07-19 15:12 | disposition home or self-care (01) ==
LOC: LABBT 15:11
PROVIDERS: ATTEND Urology
DX: Z01.812 Encounter for preprocedural laboratory examination (principal); R10.2 Pelvic and perineal pain; R39.89 Other symptoms and signs involving the genitourinary system; Z20.822 Contact with and (suspected) exposure to COVID-19
CPT/HCPCS: 80048; 81001; 85027; 85610; 85730; 87077; 87086; 87186; U0003; U0005

== ENCOUNTER 2021-09-06 20:45 | Inpatient (IN) | payer MEDICARE ==
[2021-09-06 23:35] VITALS: BMI 21.6
[2021-09-07] MEDS ORDERED: Acetaminophen 325 MG TAB PO PRN (02:51)
[2021-09-07] MEDS ORDERED: Bisacodyl 5 MG TAB PO PRN (02:51)
[2021-09-07] MEDS ORDERED: Ondansetron PF 4 MG/2 ML Vial IVP PRN (02:51)
[2021-09-07] MEDS ORDERED: Senokot S 8.6-50 MG TAB PO PRN (02:51)
[2021-09-07] MEDS ORDERED: Ondansetron ODT 4 MG TAB PO PRN (02:51)
[2021-09-07] MEDS ORDERED: Aspirin Chewable 81 MG TAB PO SCH (03:15)
[2021-09-07] MEDS ORDERED: Lactated Ringer's 1,000 ML IV SCH ×2 (04:15→05:15)
[2021-09-07] MEDS ORDERED: cefTRIAXone\\ROCEPHIN 2 GM in Sodium Chloride 0.9% 100 ML IVPB SCH (04:15)
[2021-09-07 04:16] LABS: #Eosinphils 0.1 thou/uL (0.0-0.7); #Lymphocytes 2.1 thou/uL (1.20-3.40); #Monocytes 1.1 thou/uL (0.11-0.59); #Neutrophils 5.9 thou/uL (1.40-6.50); %Basophils 0.3 % (0.0-1.0); %Eosinophils 0.6 % (0.0-10.0); %Lymphocytes 22.7 % (21.0-51.0); %Monocytes 12.1 % (0.0-10.0); %Neutrophils 64.3 % (42.0-75.0); Hemoglobin 12.1 g/dL (12.0-16.0); Mean Corpuscular HGB CONC 33.6 g/dL (32.0-36.0); Mean Corpuscular Hemoglobin 32.4 pg (27.0-31.0); Mean Corpuscular Volume 96.5 fL (78.0-98.0); Platelet Count 139 thou/uL (130-400); RBC Distribution Width 11.9 % (11.5-14.5); Red Blood Cell (RBC) Count 3.73 mill/uL (4.20-5.40); White Blood Cell (WBC) Count 9.2 thou/uL (4.8-10.8)
[2021-09-07 04:38] LABS: ALT (SGPT) 13 U/L (8-55); AST (SGOT) 23 U/L (5-34); Albumin 4.2 g/dL (3.4-4.8); Alkaline Phosphatase 91 U/L (40-110); Anion Gap 18 mmol/L (10-20); BUN (Urea Nitrogen) 32 mg/dL (9.8-20.1); Bilirubin, Total 0.7 mg/dL (0.2-1.2); Calc. Creatinine Clearance 29 mL/min (70-130); Calcium 10.2 mg/dL (7.8-10.44); Carbon Dioxide 21 mmol/L (23-31); Cardiac Risk 2.1 (Less than 4.5); Chloride 105 mmol/L (98-107); Cholesterol 83 mg/dl (< 200 Desired); Globulin 2.8 g/dL (2.4-3.5); Glucose 71 mg/dL (83-110); HDL Cholesterol 39 mg/dL (>60 Neg Risk); LDL Cholesterol, Calculated 32 mg/dL; Lipase 26 U/L (8-78); Magnesium 2.2 mg/dL (1.6-2.6); Potassium 4.2 mmol/L (3.5-5.1); Sodium 140 mmol/L (136-145); Triglycerides 58 mg/dL (Less than 150)
[2021-09-07 04:40] LABS: Troponin I 0.271 ng/mL (< 0.028)
[2021-09-07] MEDS: Enoxaparin Sodium 60 MG/0.6 ML SYRINGE SC SCH (06:00)
[2021-09-07] MEDS: Aspirin Chewable 81 MG TAB PO SCH (08:49)
[2021-09-07 09:14] LABS: Troponin I 0.209 ng/mL (< 0.028)
[2021-09-07 11:01] LABS: Troponin I 0.173 ng/mL (< 0.028)
[2021-09-07] MEDS: Dextrose 5 % And 0.9 % NaCl 1,000 ML IV SCH (12:04)
[2021-09-07 12:21] LABS: SARS-CoV-2 PCR by NAA Not Detected (NotDetected)
[2021-09-07] MEDS: Carvedilol 6.25 MG TAB PO SCH (20:19)
[2021-09-07] MEDS: Rosuvastatin 10 MG TAB PO SCH (20:19)
[2021-09-07] MEDS ORDERED: Phenazopyridine HCl 97.5 MG TABLET PO SCH (21:00)
[2021-09-08] MEDS: Dextrose 5 % And 0.9 % NaCl 1,000 ML IV SCH (05:00)
[2021-09-08] MEDS: Enoxaparin Sodium 60 MG/0.6 ML SYRINGE SC SCH (05:00)
[2021-09-08 05:06] LABS: Hemoglobin A1c 4.9 % (4.0-6.0)
[2021-09-08 05:17] LABS: Anion Gap 11 mmol/L (10-20); BUN (Urea Nitrogen) 22 mg/dL (9.8-20.1); Calc. Creatinine Clearance 38 mL/min (70-130); Carbon Dioxide 24 mmol/L (23-31); Chloride 108 mmol/L (98-107); Cholesterol 69 mg/dl (< 200 Desired); Glucose 108 mg/dL (83-110); HDL Cholesterol 34 mg/dL (>60 Neg Risk); LDL Cholesterol, Calculated 25 mg/dL; Potassium 3.8 mmol/L (3.5-5.1); Sodium 139 mmol/L (136-145); Triglycerides 50 mg/dL (Less than 150)
[2021-09-08 05:26] LABS: #Eosinphils 0.1 thou/uL (0.0-0.7); #Lymphocytes 1.2 thou/uL (1.20-3.40); #Monocytes 0.7 thou/uL (0.11-0.59); #Neutrophils 4.3 thou/uL (1.40-6.50); %Eosinophils 1.4 % (0.0-10.0); %Lymphocytes 18.8 % (21.0-51.0); %Monocytes 11.6 % (0.0-10.0); %Neutrophils 68.2 % (42.0-75.0); Hemoglobin 11.2 g/dL (12.0-16.0); Mean Corpuscular HGB CONC 34.1 g/dL (32.0-36.0); Mean Corpuscular Hemoglobin 32.9 pg (27.0-31.0); Mean Corpuscular Volume 96.7 fL (78.0-98.0); Mean Platelet Volume 9.6 fL (7.4-10.4); Platelet Count 111 thou/uL (130-400); Platelet Morphology Comment Appears Decreased; RBC Distribution Width 11.9 % (11.5-14.5); Red Blood Cell (RBC) Count 3.39 mill/uL (4.20-5.40); White Blood Cell (WBC) Count 6.3 thou/uL (4.8-10.8)
[2021-09-08] MEDS ORDERED: cefTRIAXone\\ROCEPHIN 2 GM in Sodium Chloride 0.9% 100 ML IVPB SCH (06:00)
[2021-09-08] MEDS: Carvedilol 6.25 MG TAB PO SCH ×2 (10:11→17:05)
[2021-09-08] MEDS: Aspirin Chewable 81 MG TAB PO SCH (10:11)
[2021-09-08] MEDS ORDERED: Carvedilol 6.25 MG TAB PO SCH (12:30)
[2021-09-08] MEDS ORDERED: Meropenem 1 GM in Sodium Chloride 0.9% 100 ML IVPB SCH (16:00)
[2021-09-08] MEDS: Rosuvastatin 10 MG TAB PO SCH (20:36)
[2021-09-08] MEDS: Meropenem 1 GM in Sodium Chloride 0.9% 100 ML IVPB SCH ×2 (23:54→23:55)
[2021-09-09 04:41] LABS: #Eosinphils 0.1 thou/uL (0.0-0.7); #Lymphocytes 1.2 thou/uL (1.20-3.40); #Monocytes 0.6 thou/uL (0.11-0.59); #Neutrophils 2.5 thou/uL (1.40-6.50); %Basophils 0.1 % (0.0-1.0); %Eosinophils 3.3 % (0.0-10.0); %Lymphocytes 27.5 % (21.0-51.0); %Monocytes 14.1 % (0.0-10.0); Hemoglobin 10.3 g/dL (12.0-16.0); Mean Corpuscular HGB CONC 33.9 g/dL (32.0-36.0); Mean Corpuscular Volume 97.2 fL (78.0-98.0); Mean Platelet Volume 9.4 fL (7.4-10.4); Platelet Count 115 thou/uL (130-400); RBC Distribution Width 11.9 % (11.5-14.5); Red Blood Cell (RBC) Count 3.12 mill/uL (4.20-5.40); White Blood Cell (WBC) Count 4.5 thou/uL (4.8-10.8)
[2021-09-09 04:47] LABS: Anion Gap 11 mmol/L (10-20); BUN (Urea Nitrogen) 15 mg/dL (9.8-20.1); Calc. Creatinine Clearance 46 mL/min (70-130); Calcium 8.8 mg/dL (7.8-10.44); Carbon Dioxide 24 mmol/L (23-31); Chloride 106 mmol/L (98-107); Glucose 88 mg/dL (83-110); Potassium 3.6 mmol/L (3.5-5.1); Sodium 137 mmol/L (136-145)
[2021-09-09] MEDS: Enoxaparin Sodium 60 MG/0.6 ML SYRINGE SC SCH (05:49)
[2021-09-09] MEDS ORDERED: Enoxaparin Sodium 60 MG/0.6 ML SYRINGE SC SCH (09:00)
[2021-09-09] MEDS: Carvedilol 6.25 MG TAB PO SCH ×2 (11:23→15:14)
[2021-09-09] MEDS: Aspirin Chewable 81 MG TAB PO SCH (11:24)
[2021-09-09 15:15] VITALS: BP 110/53
[2021-09-09 15:16] VITALS: TEMP 98.1
== END 2021-09-09 16:00 | disposition home or self-care (01) | DRG 689 ==
LOC: 2NO 20:45 → OBSVTOIN 09-07 02:59
PROVIDERS: ADMIT Family Medicine; ATTEND Family Medicine
DX: N39.0 Urinary tract infection, site not specified (principal); I21.4 Non-ST elevation (NSTEMI) myocardial infarction; I50.42 Chronic combined systolic (congestive) and diastolic (congestive) heart failure; I13.0 Hypertensive heart and chronic kidney disease with heart failure and stage 1 through stage 4 chronic kidney disease, or unspecified chronic kidney disease; Z16.24 Resistance to multiple antibiotics; N17.9 Acute kidney failure, unspecified; Z20.822 Contact with and (suspected) exposure to COVID-19; E78.5 Hyperlipidemia, unspecified; N18.32 Chronic kidney disease, stage 3b; I25.5 Ischemic cardiomyopathy; I25.10 Atherosclerotic heart disease of native coronary artery without angina pectoris; E86.0 Dehydration; B96.20 Unspecified Escherichia coli [E. coli] as the cause of diseases classified elsewhere; K59.00 Constipation, unspecified; I25.2 Old myocardial infarction; Z88.7 Allergy status to serum and vaccine; Z88.1 Allergy status to other antibiotic agents; Z91.012 Allergy to eggs; Z90.710 Acquired absence of both cervix and uterus; Z95.0 Presence of cardiac pacemaker; Z95.5 Presence of coronary angioplasty implant and graft; Z98.890 Other specified postprocedural states
CPT/HCPCS: 36415; 80048; 80053; 80061; 83036; 83690; 83735; 84443; 84484; 85025; 85520; 87040; 93306; 94760; J0696; J1650; J2185; J3490; J7042; J7120; U0003; U0005

== ENCOUNTER 2021-09-28 01:47 | Inpatient (IN) | payer MEDICARE ==
[2021-09-28] MEDS ORDERED: Ondansetron PF 4 MG/2 ML Vial IVP PRN (02:19)
[2021-09-28] MEDS ORDERED: Sodium Chloride 0.9% 1,000 ML IV SCH (02:30)
[2021-09-28] MEDS: Acetaminophen 325 MG TAB PO PRN ×2 (04:31→20:01)
[2021-09-28] MEDS: Meropenem 500 MG in Sodium Chloride 0.9% 100 ML IVPB SCH ×2 (05:06→19:07)
[2021-09-28 05:33] LABS: #Lymphocytes 0.8 thou/uL (1.20-3.40); #Monocytes 0.9 thou/uL (0.11-0.59); #Neutrophils 6.3 thou/uL (1.40-6.50); %Basophils 0.1 % (0.0-1.0); %Monocytes 11.2 % (0.0-10.0); %Neutrophils 78.7 % (42.0-75.0); Hemoglobin 9.7 g/dL (12.0-16.0); Mean Corpuscular HGB CONC 32.5 g/dL (32.0-36.0); Mean Corpuscular Hemoglobin 31.7 pg (27.0-31.0); Mean Corpuscular Volume 97.5 fL (78.0-98.0); Mean Platelet Volume 9.8 fL (7.4-10.4); Platelet Count 100 thou/uL (130-400); RBC Distribution Width 12.8 % (11.5-14.5); Red Blood Cell (RBC) Count 3.07 mill/uL (4.20-5.40)
[2021-09-28 05:34] LABS: Anion Gap 15 mmol/L (10-20); BUN (Urea Nitrogen) 38 mg/dL (9.8-20.1); Calc. Creatinine Clearance 18 mL/min (70-130); Calcium 9.1 mg/dL (7.8-10.44); Carbon Dioxide 22 mmol/L (23-31); Chloride 106 mmol/L (98-107); Glucose 121 mg/dL (83-110); Potassium 4.7 mmol/L (3.5-5.1); Sodium 138 mmol/L (136-145)
[2021-09-28] MEDS ORDERED: Meropenem 1 GM in Sodium Chloride 0.9% 100 ML IVPB SCH (06:00)
[2021-09-28] MEDS ORDERED: Nitroglycerin 0.4 MG TAB (25 Tab Bottle) SL PRN (13:46)
[2021-09-28] MEDS ORDERED: Acetaminophen 325 MG TAB PO PRN (13:46)
[2021-09-28] MEDS ORDERED: Polyethylene Glycol 3350 17 GM Packet PO PRN (13:56)
[2021-09-28] MEDS ORDERED: Aspirin 81 mg Enteric Coated Tablet PO SCH (14:00)
[2021-09-28] MEDS ORDERED: Electrolyte Replacement Protocol 1 EACH FS SCH (14:00)
[2021-09-28] MEDS ORDERED: Electrolyte Replacement Protocol FS PRN (14:30)
[2021-09-28] MEDS: Sodium Chloride 0.9% 1,000 ML IV SCH (15:43)
[2021-09-28] MEDS: Carvedilol 3.125 MG TAB PO SCH (16:24)
[2021-09-28 16:45] LABS: Troponin I 1.312 ng/mL (< 0.028)
[2021-09-28] MEDS ORDERED: Albumin 25% 25 GM/100 ML BOT IVPB SCH (17:00)
[2021-09-28] MEDS: Saccharomyces boulardii 250 MG CAP PO SCH (20:01)
[2021-09-28] MEDS: Multivit, Therapeutic 1 TAB PO SCH (20:02)
[2021-09-28] MEDS: Mirtazapine 15 MG TAB PO SCH (20:02)
[2021-09-28] MEDS: Rosuvastatin 10 MG TAB PO SCH (20:02)
[2021-09-28] MEDS: Senokot S 8.6-50 MG TAB PO SCH (20:02)
[2021-09-29] MEDS: Sodium Chloride 0.9% 1,000 ML IV SCH (03:18)
[2021-09-29 04:15] LABS: #Eosinphils 0.1 thou/uL (0.0-0.7); #Lymphocytes 1.3 thou/uL (1.20-3.40); #Monocytes 0.9 thou/uL (0.11-0.59); %Basophils 0.1 % (0.0-1.0); %Eosinophils 0.9 % (0.0-10.0); %Lymphocytes 17.3 % (21.0-51.0); %Monocytes 12.8 % (0.0-10.0); %Neutrophils 68.9 % (42.0-75.0); Hemoglobin 9.9 g/dL (12.0-16.0); Mean Corpuscular HGB CONC 32.7 g/dL (32.0-36.0); Mean Corpuscular Hemoglobin 32.8 pg (27.0-31.0); Mean Platelet Volume 9.3 fL (7.4-10.4); Platelet Count 106 thou/uL (130-400); RBC Distribution Width 12.8 % (11.5-14.5); Red Blood Cell (RBC) Count 3.02 mill/uL (4.20-5.40); White Blood Cell (WBC) Count 7.3 thou/uL (4.8-10.8)
[2021-09-29 04:41] LABS: ALT (SGPT) 23 U/L (8-55); AST (SGOT) 26 U/L (5-34); Albumin 3.1 g/dL (3.4-4.8); Alkaline Phosphatase 87 U/L (40-110); Anion Gap 13 mmol/L (10-20); BUN (Urea Nitrogen) 36 mg/dL (9.8-20.1); Bilirubin, Total 0.4 mg/dL (0.2-1.2); Calc. Creatinine Clearance 25 mL/min (70-130); Carbon Dioxide 18 mmol/L (23-31); Chloride 110 mmol/L (98-107); Glucose 85 mg/dL (83-110); Magnesium 1.8 mg/dL (1.6-2.6); Phosphorus 2.4 mg/dL (2.3-4.7); Potassium 4.2 mmol/L (3.5-5.1); Protein, Total 6.1 g/dL (5.8-8.1); Sodium 137 mmol/L (136-145)
[2021-09-29 04:45] LABS: Critical Call Chem Troponin I RESULT DECREASING
[2021-09-29 05:03] LABS: CKMB 1.1 ng/mL (0-6.6)
[2021-09-29] MEDS: Meropenem 500 MG in Sodium Chloride 0.9% 100 ML IVPB SCH ×2 (05:19→17:11)
[2021-09-29] MEDS ORDERED: Magnesium 2 GM/50 ML(in water) 2 GM in Premix Bag 1 BAG IVPB SCH (06:30)
[2021-09-29] MEDS ORDERED: Carvedilol 3.125 MG TAB PO SCH ×2 (08:45→09:45)
[2021-09-29] MEDS ORDERED: Aspirin 81 mg Enteric Coated Tablet PO SCH (09:00)
[2021-09-29] MEDS: Senokot S 8.6-50 MG TAB PO SCH ×2 (09:50→20:52)
[2021-09-29] MEDS: Vit A,C & E/Lutein/Minerals Tablet PO SCH (09:50)
[2021-09-29] MEDS: Carvedilol 3.125 MG TAB PO SCH (09:57)
[2021-09-29] MEDS: Aspirin 81 mg Enteric Coated Tablet PO SCH (10:55)
[2021-09-29] MEDS: Carvedilol 6.25 MG TAB PO SCH (17:11)
[2021-09-29] MEDS: Rosuvastatin 10 MG TAB PO SCH (20:53)
[2021-09-29] MEDS: Multivit, Therapeutic 1 TAB PO SCH (20:53)
[2021-09-29] MEDS: Saccharomyces boulardii 250 MG CAP PO SCH (20:53)
[2021-09-29] MEDS: Mirtazapine 15 MG TAB PO SCH (20:53)
[2021-09-29] MEDS: Acetaminophen 325 MG TAB PO PRN (20:53)
[2021-09-30] MEDS: Meropenem 500 MG in Sodium Chloride 0.9% 100 ML IVPB SCH (05:26)
[2021-09-30 06:27] LABS: Anion Gap 14 mmol/L (10-20); BUN (Urea Nitrogen) 29 mg/dL (9.8-20.1); Calc. Creatinine Clearance 35 mL/min (70-130); Calcium 8.9 mg/dL (7.8-10.44); Carbon Dioxide 19 mmol/L (23-31); Chloride 108 mmol/L (98-107); Glucose 92 mg/dL (83-110); Potassium 4.1 mmol/L (3.5-5.1); Sodium 137 mmol/L (136-145)
[2021-09-30] MEDS: Carvedilol 6.25 MG TAB PO SCH ×2 (08:03→15:21)
[2021-09-30] MEDS: Aspirin 81 mg Enteric Coated Tablet PO SCH (08:03)
[2021-09-30] MEDS: Vit A,C & E/Lutein/Minerals Tablet PO SCH (08:03)
[2021-09-30] MEDS: Senokot S 8.6-50 MG TAB PO SCH ×3 (08:03→20:02)
[2021-09-30] MEDS ORDERED: Sodium Chloride 0.9% 500 ML IV SCH (13:45)
[2021-09-30] MEDS: Rosuvastatin 10 MG TAB PO SCH (19:55)
[2021-09-30] MEDS: Amoxicillin/Potassium Clav 875 MG TAB PO SCH (19:55)
[2021-09-30] MEDS: Saccharomyces boulardii 250 MG CAP PO SCH (19:55)
[2021-09-30] MEDS: Mirtazapine 15 MG TAB PO SCH (19:55)
[2021-09-30] MEDS: Multivit, Therapeutic 1 TAB PO SCH (19:59)
[2021-10-01 08:52] VITALS: BP 171/74; TEMP 98
[2021-10-01] MEDS: Aspirin 81 mg Enteric Coated Tablet PO SCH (08:52)
[2021-10-01] MEDS: Vit A,C & E/Lutein/Minerals Tablet PO SCH (08:52)
[2021-10-01] MEDS: Amoxicillin/Potassium Clav 875 MG TAB PO SCH (08:52)
[2021-10-01] MEDS: Carvedilol 6.25 MG TAB PO SCH (08:52)
[2021-10-01] MEDS: Senokot S 8.6-50 MG TAB PO SCH ×2 (08:53)
== END 2021-10-01 13:43 | disposition swing bed (61) | DRG 698 ==
LOC: 2NO 01:47 → T4-B 09-29 13:54
PROVIDERS: ADMIT Internal Medicine; ATTEND Internal Medicine
DX: T83.511A Infection and inflammatory reaction due to indwelling urethral catheter, initial encounter (principal); A41.81 Sepsis due to Enterococcus; G92.8 Other toxic encephalopathy; R65.20 Severe sepsis without septic shock; I13.0 Hypertensive heart and chronic kidney disease with heart failure and stage 1 through stage 4 chronic kidney disease, or unspecified chronic kidney disease; N17.9 Acute kidney failure, unspecified; I24.8 Other forms of acute ischemic heart disease; I50.42 Chronic combined systolic (congestive) and diastolic (congestive) heart failure; N39.0 Urinary tract infection, site not specified; Z20.822 Contact with and (suspected) exposure to COVID-19; I25.10 Atherosclerotic heart disease of native coronary artery without angina pectoris; N18.9 Chronic kidney disease, unspecified; D63.1 Anemia in chronic kidney disease; D69.6 Thrombocytopenia, unspecified; R33.9 Retention of urine, unspecified; Y84.6 Urinary catheterization as the cause of abnormal reaction of the patient, or of later complication, without mention of misadventure at the time of the procedure; Z88.7 Allergy status to serum and vaccine; Z88.8 Allergy status to other drugs, medicaments and biological substances; Z91.012 Allergy to eggs; Z87.440 Personal history of urinary (tract) infections; Z79.899 Other long term (current) drug therapy; Z79.82 Long term (current) use of aspirin; Z90.710 Acquired absence of both cervix and uterus; Z90.722 Acquired absence of ovaries, bilateral; Z95.1 Presence of aortocoronary bypass graft; Z95.5 Presence of coronary angioplasty implant and graft; Z98.890 Other specified postprocedural states; Z82.49 Family history of ischemic heart disease and other diseases of the circulatory system
CPT/HCPCS: 36415; 71045; 80048; 80053; 82553; 82607; 82746; 83735; 84100; 84484; 85025; 87040; 87077; 87086; 87186; J2185; J3475; J3490; J7030; J7050; P9047

== ENCOUNTER 2021-12-06 08:12 | Day surgery (SDC) | payer MEDICARE, BC ==
[2021-12-03 14:27] VITALS: BMI 20.9
[2021-12-06 09:22] LABS: Prothrombin Time 13.1 sec (12.0-14.7)
[2021-12-06] MEDS ORDERED: cefTRIAXone\\ROCEPHIN 1 GM in Sodium Chloride 0.9% 100 ML IVPB SCH (10:15)
[2021-12-06 10:25] VITALS: BP 188/83; TEMP 98.8
[2021-12-06] MEDS ORDERED: Fentanyl 100 MCG/2 ML VIAL ONE (10:50)
[2021-12-06] MEDS ORDERED: Midazolam HCl 2 mg/2 ml Vial ONE (10:51)
== END 2021-12-06 11:54 | disposition home or self-care (01) ==
LOC: CT 08:12
PROVIDERS: ATTEND Urology
DX: R33.9 Retention of urine, unspecified (principal); N13.30 Unspecified hydronephrosis; K57.30 Diverticulosis of large intestine without perforation or abscess without bleeding; G89.29 Other chronic pain; R10.2 Pelvic and perineal pain; R35.0 Frequency of micturition; N30.10 Interstitial cystitis (chronic) without hematuria; I11.0 Hypertensive heart disease with heart failure; I50.22 Chronic systolic (congestive) heart failure; E78.5 Hyperlipidemia, unspecified; K21.9 Gastro-esophageal reflux disease without esophagitis; M19.90 Unspecified osteoarthritis, unspecified site; I25.10 Atherosclerotic heart disease of native coronary artery without angina pectoris; Z87.440 Personal history of urinary (tract) infections; Z53.8 Procedure and treatment not carried out for other reasons; Z79.82 Long term (current) use of aspirin; Z79.899 Other long term (current) drug therapy; Z88.7 Allergy status to serum and vaccine; Z88.8 Allergy status to other drugs, medicaments and biological substances; Z91.012 Allergy to eggs; Z95.1 Presence of aortocoronary bypass graft; Z95.5 Presence of coronary angioplasty implant and graft
CPT/HCPCS: 36415; 76380; 85610; 85730; J0696; J2250; J3010; J3490

== ENCOUNTER 2021-12-07 20:07 | Observation (INO) | payer MEDICARE ==
[2021-12-07 21:17] LABS: #Eosinphils 0.1 thou/uL (0.0-0.7); #Lymphocytes 1.7 thou/uL (1.20-3.40); #Monocytes 0.5 thou/uL (0.11-0.59); %Basophils 0.2 % (0.0-1.0); %Eosinophils 1.9 % (0.0-10.0); %Lymphocytes 39.9 % (21.0-51.0); %Neutrophils 46.1 % (42.0-75.0); Hemoglobin 9.2 g/dL (12.0-16.0); Mean Corpuscular HGB CONC 32.6 g/dL (32.0-36.0); Mean Corpuscular Hemoglobin 32.4 pg (27.0-31.0); Mean Corpuscular Volume 99.5 fL (78.0-98.0); Mean Platelet Volume 9.2 fL (7.4-10.4); Platelet Count 172 thou/uL (130-400); Red Blood Cell (RBC) Count 2.85 mill/uL (4.20-5.40); White Blood Cell (WBC) Count 4.3 thou/uL (4.8-10.8)
[2021-12-07 21:39] LABS: ALT (SGPT) 10 U/L (8-55); AST (SGOT) 18 U/L (5-34); Acetaminophen Less than 10.0 mcg/mL (10.0-30.0); Albumin 3.9 g/dL (3.4-4.8); Alcohol Less than 10 mg/dL (Less than 10); Alkaline Phosphatase 67 U/L (40-110); Anion Gap 14 mmol/L (10-20); BUN (Urea Nitrogen) 25 mg/dL (9.8-20.1); Bilirubin, Total 0.3 mg/dL (0.2-1.2); Calc. Creatinine Clearance 0 mL/min (70-130); Calcium 9.9 mg/dL (7.8-10.44); Carbon Dioxide 27 mmol/L (23-31); Chloride 105 mmol/L (98-107); Estimated GFR 52; Globulin 3.1 g/dL (2.4-3.5); Glucose 164 mg/dL (83-110); Potassium 4.5 mmol/L (3.5-5.1); Salicylate Less than 8.0 mg/dL (15.0-30.0); Sodium 141 mmol/L (136-145)
[2021-12-08 04:20] LABS: Bacteria/HPF None Seen HPF (None Seen); Bilirubin Negative (Negative); Blood, Urine 1+ (Negative); Clarity Clear (Clear); Glucose, Urine (Dipstick) Normal (Negative); Ketone, Urine Negative (Negative); Leukocyte 500 Leu/uL (Negative); Nitrite Negative (Negative); Protein, Urine (Dipstick) 50 mg/dL (Neg-Trace); Specific Gravity, Urine 1.013 (1.002-1.036); Squamous Epithelial 0-3 HPF (0-3); Urobilinogen Normal mg/dL (Less than 2); WBC/HPF Greater than 50 HPF (0-3)
[2021-12-08 04:21] LABS: Amphetamine Not Detected (NotDetected); Barbiturates Screen Not Detected (NotDetected); Benzodiazepine Screen Not Detected (NotDetected); Cocaine Metabolite Screen Not Detected (NotDetected); Methadone Not Detected (NotDetected); Methamphetamine Not Detected (NotDetected); Opiate Screen Not Detected (NotDetected); Oxycodone Screen Not Detected (NotDetected); Phencyclidine (PCP) Not Detected (NotDetected); THC/Cannabinoid Screen Not Detected (NotDetected); Tricyclic Screen Not Detected (NotDetected)
[2021-12-08 04:47] VITALS: BMI 20.9
[2021-12-08 05:12] LABS: SARS-CoV-2 NAA Rapid Test Not Detected (NotDetected)
[2021-12-08] MEDS ORDERED: Ondansetron PF 4 MG/2 ML Vial IVP PRN (09:24)
[2021-12-08] MEDS ORDERED: Ondansetron ODT 4 MG TAB PO PRN (09:24)
[2021-12-08] MEDS ORDERED: Acetaminophen 325 MG TAB PO PRN (09:24)
[2021-12-08] MEDS ORDERED: Sodium Chloride 0.9% 1,000 ML IV SCH (09:30)
[2021-12-08 10:31] VITALS: BP 168/77; TEMP 98.4
[2021-12-08] MEDS ORDERED: Lorazepam 0.5 MG TAB PO SCH (10:52)
[2021-12-08] MEDS ORDERED: Lorazepam 1 MG TAB ONE (11:18)
[2021-12-08] MEDS ORDERED: Carvedilol 6.25 MG TAB PO SCH (21:00)
[2021-12-08] MEDS ORDERED: Rosuvastatin 10 MG TAB PO SCH (21:00)
[2021-12-08] MEDS ORDERED: Mirtazapine 15 MG TAB PO SCH (21:00)
[2021-12-09] MEDS ORDERED: Aspirin 81 mg Enteric Coated Tablet PO SCH (09:00)
[2021-12-09] MEDS ORDERED: [UNRECOGNIZED DRUG - OTHER] PO SCH (09:00)
[2021-12-09] MEDS ORDERED: Multivit, Therapeutic 1 TAB PO SCH (09:00)
[2021-12-22] MEDS ORDERED: Evolocumab [Repatha Sureclick] 140 MG/ML Pen.Injctr SC SCH (09:00)
== END 2021-12-08 12:43 | disposition short-term general hospital (02) ==
LOC: ERS 20:07 → ERHOLD 12-08 03:12
PROVIDERS: ADMIT Internal Medicine; ATTEND Internal Medicine
DX: R41.82 Altered mental status, unspecified (principal); F22 Delusional disorders; D53.9 Nutritional anemia, unspecified; R33.9 Retention of urine, unspecified; I11.0 Hypertensive heart disease with heart failure; I50.30 Unspecified diastolic (congestive) heart failure; I25.10 Atherosclerotic heart disease of native coronary artery without angina pectoris; E78.5 Hyperlipidemia, unspecified; I25.2 Old myocardial infarction; Z87.440 Personal history of urinary (tract) infections; Z79.82 Long term (current) use of aspirin; Z79.899 Other long term (current) drug therapy; Z88.7 Allergy status to serum and vaccine; Z88.8 Allergy status to other drugs, medicaments and biological substances; Z91.012 Allergy to eggs; Z95.1 Presence of aortocoronary bypass graft; Z95.5 Presence of coronary angioplasty implant and graft; Z96.0 Presence of urogenital implants; Z20.822 Contact with and (suspected) exposure to COVID-19
CPT/HCPCS: 36415; 70450; 70551; 80053; 80061; 80069; 80306; 80307; 81003; 81015; 84484; 85025; 93005; J7050; U0002